=== PATIENT | male | born 1945 | race Caucasian/White ===

== ENCOUNTER → 2016-06-18 | Outpatient (CLI) | payer OTHER ==
--- NOTE | 2016-06-18 10:00 | DI ---
RETROPERITONEAL LIMITED,06/18/2016 9:03 AM: Clinical History: Screening for abdominal aortic aneurysm. Previous Exam: June 09, 2007 Findings: Images through the aorta demonstrate a normal proximal abdominal aorta measuring 2.4 cm in AP dimensi on. The mid abdominal aorta measures 2.1 cm and the distal measures 1.8 cm. The common iliac arteries are normal (1.1 cm). Impression: Normal abdominal aorta.
== END ==
LOC: US 08:57
DX: I71.4 Abdominal aortic aneurysm, without rupture (principal)
CPT/HCPCS: 76775